=== PATIENT | male | born 1950 | race Caucasian/White ===

== ENCOUNTER 2019-05-23 14:38 | Emergency (ER) | payer OTHER ==
[~2019-05-23] VITALS: Ht 182.9 cm; Wt 77.1 kg
[~2019-05-23 14:38] MED LIST: BACTRIM DS TAB1 EACH PO; IBUPROFEN 800800 M1 PO; LEVOTHYROXIN0.075 MG PO; LIPITOR 10 MG10 M1 PO
[2019-05-23 14:47] VITALS: BP 158/78
== END 2019-05-23 15:37 | disposition home or self-care (01) ==
LOC: M.ERS 14:38
DX: S61.411A Laceration without foreign body of right hand, initial encounter (principal); E78.00 Pure hypercholesterolemia, unspecified; E03.9 Hypothyroidism, unspecified; Z88.8 Allergy status to other drugs, medicaments and biological substances; W28.XXXA Contact with powered lawn mower, initial encounter; Y92.89 Other specified places as the place of occurrence of the external cause; Y99.0 Civilian activity done for income or pay; Y99.8 Other external cause status